=== PATIENT | female | born 1965 | race Caucasian/White ===

== ENCOUNTER 2019-10-26 12:19 | Emergency (ER) | payer MEDICARE, MEDICAID ==
--- NOTE | 2019-10-26 12:59 | EDM.PDOC ---
ED HPI GENERAL MEDICAL PROBLEM - General Chief Complaint: Abdominal Pain Stated Complaint: RUQ abd pain Time Seen by Provider: 10/26/19 12:36 Source of Information: Reports: Patient History Limitations: Reports: No Limitations - History of Present Illness INITIAL COMMENTS - FREE TEXT/NARRATIVE: This patient is a 54 year old female that presents to the ER via EMS. Patient reports that she had hernia repair surgery on Monday. She reports that a wound vac and KATHERINE drain was placed. She reports that she was admitted to the hospital in [place] where the surgery was performed. She reports that she had her KATHERINE drain removed , then discharged home. She reports that she went home with the portable wound vac. She reports started yesterday having RUQ pain and a swelling sensation. She reports the pain has worsened. The patent reports that since yesterday she has had some nausea with the pain. She reports that then this morning, she felt like she had to have a BM. She reports that she sat on the toilet, and dark blood filled the toilet. Patient reports she tried to call her surgeon, sat on hold. Then called ambulance per patient. Patient also reports she has not been taking her Lovenox because she does not now how to use the injection. We will educate patient on this in the ER. Onset Date: 10/25/19 Location: Reports: Abdomen Quality: Reports: Ache Severity: Mild Improves with: Reports: None Worsens with: Reports: None Associated Symptoms: Reports: Nausea/Vomiting. Denies: Confusion, Chest Pain, Cough, cough w sputum, Diaphoresis, Fever/Chills, Headaches, Loss of Appetite, Malaise, Rash, Seizure, Shortness of Breath (chronic, unchanged. Not new. ), Syncope, Weakness Right Upper Abdominal Pain Score (Numeric/FACES): 7 - Related Data Allergies Allergy/AdvReac Type Severity Reaction Status Date / Time acetaminophen [From Midol] Allergy Rash Verified 10/26/19 12:28 aspirin [From Pamprin Max] Allergy Rash Verified 10/26/19 12:28 caffeine [From Pamprin Max] Allergy Rash Verified 10/26/19 12:28 codeine Allergy Cannot Verified 06/25/19 11:16 Remember doxycycline Allergy Cannot Verified 06/25/19 11:16 Remember erythromycin base Allergy Cannot Verified 06/25/19 11:16 Remember pamabrom [From Midol] Allergy Rash Verified 10/26/19 12:28 risperidone [From Risperdal] Allergy Cannot Verified 10/26/19 12:27 Remember Home Meds: Home Meds Cholecalciferol (Vitamin D3) [Optimal D3] 1,250 mcg PO WEEKLY 06/25/19 [History] Crisaborole [Eucrisa] 60 gm TP BID 06/25/19 [History] Ibuprofen [Ibu] 800 mg PO TID PRN 06/25/19 [History] Omeprazole 20 mg PO DAILY 06/25/19 [History] Ondansetron [Zofran ODT] 4 mg PO Q6H PRN 06/25/19 [History] Tiotropium [Spiriva] 1 puff INH DAILY 06/25/19 [History] allopurinoL [Zyloprim] 100 mg PO DAILY 06/25/19 [History] atorvaSTATin Calcium [Atorvastatin Calcium] 10 mg PO DAILY 06/25/19 [History] hydroCHLOROthiazide [Hydrochlorothiazide] 12.5 mg PO DAILY 06/25/19 [History] lamoTRIgine [Lamotrigine] 150 mg PO BID 06/25/19 [History] metFORMIN HCl [Metformin HCl] 500 mg PO BID 06/25/19 [History] tiZANidine HCl [Tizanidine HCl] 4 mg PO Q8H PRN 06/25/19 [History] traMADol HCl [Tramadol HCl] 50 mg PO Q6H PRN 06/25/19 [History] Fluticasone/Vilanterol [Breo Ellipta 200-25 MCG Inhalation Kit] 1 puff INH DAILY 10/26/19 [History] oxyCODONE 5 mg PO Q4HR PRN 10/26/19 [History] Past Medical History Cardiovascular History: Reports: High Cholesterol Respiratory History: Reports: COPD Gastrointestinal History: Reports: GERD Endocrine/Metabolic History: Reports: Diabetes, Type II - Past Surgical History GI Surgical History: Reports: Cholecystectomy, Hernia, Abdominal Female Surgical History: Reports: Tubal Ligation Social & Family History - Tobacco Use Smoking Status *Q: Former Smoker Used Tobacco, but Quit: Yes Month/Year Tobacco Last Used: 2015 - Caffeine Use Caffeine Use: Reports: Coffee - Recreational Drug Use Recreational Drug Use: No ED ROS GENERAL - Review of Systems Review Of Systems: See Below Constitutional: Reports: No Symptoms, Malaise, Decreased Appetite. Denies: Fever, Chills HEENT: Reports: No Symptoms Respiratory: Reports: No Symptoms Cardiovascular: Reports: No Symptoms Endocrine: Reports: No Symptoms GI/Abdominal: Reports: Abdominal Pain, Hematochezia, Nausea. Denies: Vomiting : Reports: No Symptoms Musculoskeletal: Reports: No Symptoms Skin: Reports: No Symptoms Neurological: Reports: No Symptoms Psychiatric: Reports: No Symptoms Hematologic/Lymphatic: Reports: No Symptoms Immunologic: Reports: No Symptoms ED EXAM, GI/ABD - Physical Exam Exam: See Below Exam Limited By: No Limitations General Appearance: Alert, WD/WN, No Apparent Distress Eyes: Bilateral: Normal Appearance Ears: Normal External Exam, Normal Canal, Hearing Grossly Normal, Normal TMs Nose: Normal Inspection, Normal Mucosa, No Blood Throat/Mouth: Normal Inspection, Normal Lips, Normal Teeth, Normal Gums, Normal Oropharynx, Normal Voice, No Airway Compromise Head: Atraumatic, Normocephalic Neck: Normal Inspection, Supple, Non-Tender, Full Range of Motion Respiratory/Chest: No Respiratory Distress, No Accessory Muscle Use, Rhonchi ( chronic, COPD. ) Cardiovascular: Normal Peripheral Pulses, Regular Rate, Rhythm, No Edema, No Gallop, No JVD, No Murmur, No Rub GI/Abdominal Exam: No Organomegaly, Distended, Tender (RUQ, Central upper abd. ) , Other (wound vac dressing. Wound vac attached and light on vac is currently green. There is no drainage in the tube. ) Back Exam: Normal Inspection, Full Range of Motion Extremities: Normal Inspection, Normal Range of Motion, Non-Tender, No Pedal Edema, Normal Capillary Refill Neurological: Alert, Oriented, No Motor/Sensory Deficits Psychiatric: Normal Affect, Normal Mood Skin Exam: Warm, Dry, Intact, Normal Color, No Rash Lymphatic: No Adenopathy Course - Vital Signs Last Recorded V/S: Last Vital Signs Temp 98.5 F 10/26/19 12:21 Pulse 79 10/26/19 12:21 Resp 18 10/26/19 12:21 BP 119/80 10/26/19 12:21 Pulse Ox 96 10/26/19 12:21 - Orders/Labs/Meds Orders: Active Orders 24 hr Category Date Time Status Abdomen Pelvis w Cont [CT] Stat Exams 10/26/19 13:21 Taken CULTURE BLOOD [BC] Stat Lab 10/26/19 12:48 Received CULTURE BLOOD [BC] Stat Lab 10/26/19 12:50 Received Sodium Chloride 0.9% [Normal Saline] 500 ml Med 10/26/19 13:30 Active IV .BOLUS Blood Culture x2 Reflex Set [OM.PC] Stat Oth 10/26/19 12:44 Ordered Medication Orders Sodium Chloride (Normal Saline) 500 mls @ 500 mls/hr IV .BOLUS DAMION Last Admin: 10/26/19 14:07 Dose: 500 mls/hr Labs: Laboratory Tests 10/26/19 10/26/19 10/26/19 Range/Units 12:48 12:48 12:48 WBC 6.7 (5.0-10.0) 10^3/uL RBC 3.88 L (4.00-5.50) 10^6/uL Hgb 11.6 L (12.0-16.0) g/dL Hct 35.2 L (37.0-47.0) % MCV 90.7 (82.0-94.0) fL MCH 29.9 (27.0-32.0) pg MCHC 33.0 (33.0-38.0) g/dL RDW Coeff of Ian 13.7 (11.0-15.0) % Plt Count 400 (150-400) 10^3/uL Neut % (Auto) 61.4 (35-85) % Lymph % (Auto) 21.6 (10-55) % Garrett % (Auto) 5.7 (0-16) % Eos % (Auto) 11.1 H (0-5) % Baso % (Auto) 0.2 (0-3) % Neut # (Auto) 4.09 (1.80-7.00) 10^3/uL Lymph # (Auto) 1.44 (1.00-4.80) 10^3/uL Garrett # (Auto) 0.38 (0.00-0.80) 10^3/uL Eos # (Auto) 0.74 H (0.00-0.45) 10^3/uL Baso # (Auto) 0.01 10^3/uL Sodium 139 (136-145) mEq/L Potassium 3.7 (3.5-5.0) mEq/L Chloride 101 (98-106) mEq/L Carbon Dioxide 28 (21-32) mmol/L BUN 6 L D (7-18) mg/dL Creatinine 0.8 (0.6-1.0) mg/dL Est Cr Clr Drug Dosing 89.85 mL/min Estimated GFR (MDRD) > 60 (>=60) mL/min Glucose 109 H (75-99) mg/dL Lactic Acid 0.9 (0.4-2.0) mmol/L Calcium 9.1 (8.4-10.1) mg/dL Total Bilirubin 0.3 (0.0-1.0) mg/dL AST 44 H (15-37) U/L ALT 159 H (12-78) U/L Alkaline Phosphatase 208 H (46-116) U/L Total Protein 7.0 (6.4-8.2) g/dL Albumin 2.7 L (3.4-5.0) g/dL Meds: Medications Generic Name Dose Route Start Last Admin Trade Name Freq PRN Reason Stop Dose Admin Sodium Chloride 500 mls @ 500 mls/hr 10/26/19 13:30 10/26/19 14:07 Normal Saline IV 500 mls/hr .BOLUS DAMION Administration Discontinued Medications Generic Name Dose Route Start Last Admin Trade Name Freq PRN Reason Stop Dose Admin Iopamidol 154 ml 10/26/19 13:42 10/26/19 13:55 Isovue-370 (76%) IV 10/26/19 13:43 154 ml ONETIME ONE Administration Morphine Sulfate 4 mg 10/26/19 13:34 10/26/19 13:43 Morphine IVPUSH 10/26/19 13:35 4 mg ONETIME ONE Administration Ondansetron HCl 4 mg 10/26/19 13:35 10/26/19 13:40 Zofran IVPUSH 10/26/19 13:36 4 mg NOW STA Administration - Radiology Interpretation Free Text/Narrative:: CT ABD PELVIS WITH CONTRAST: See report: Post surgical changes compatible with recent repair of ventral hernia. Fluid collection containing air in the anterio abd wall midline, most likely represents hematoma or seroma. There is no finding definitive for abscess. CT Results Date: 10/26/19 CT Results Time: 14:40 - Re-Assessments/Exams Free Text/Narrative Re-Assessment/Exam: 10/26/19 14:50 I called and spoke to Dr. Simms general surgeon collection teller at [place]. We discussed patient presentation and all results. He reports to have patient followup with Dr. Sonia Woodward as scheduled. I then discussed this with the patient, she agrees with discharge and followup plan. Wound vac is working properly. Departure - Departure Time of Disposition: 15:10 Disposition: Home, Self-Care 01 Condition: Fair Clinical Impression: Abdominal pain Qualifiers: Abdominal location: right upper quadrant Qualified Code(s): R10.11 - Right upper quadrant pain - Discharge Information *PRESCRIPTION DRUG MONITORING PROGRAM REVIEWED*: Not Applicable *COPY OF PRESCRIPTION DRUG MONITORING REPORT IN PATIENT CHAO: Not Applicable Instructions: Abdominal Pain, Adult, [id number] Referrals: PCP,None [Primary Care Provider] - Forms: ED Department Discharge Additional Instructions: Followup with your surgeon on Monday as scheduled Followup with your primary care provider for continued blood in stool Return to the ER for worsening of condition or any emergent concerns such as passing out, worsening of condition, worsening of bloody stool, vomiting blood, or other concerns Meds as prescribed Sepsis Event Note - Evaluation Sepsis Screening Result: No Definite Risk - Focused Exam Vital Signs: Vital Signs Temp Pulse Resp BP Pulse Ox 10/26/19 12:21 98.5 F 79 18 119/80 96 Date Exam was Performed: 10/26/19 Time Exam was Performed: 15:10 - My Orders Last 24 Hours: My Active Orders 10/26/19 12:44 Blood Culture x2 Reflex Set [OM.PC] Stat 10/26/19 12:48 CULTURE BLOOD [BC] Stat 10/26/19 12:50 CULTURE BLOOD [BC] Stat 10/26/19 13:21 Abdomen Pelvis w Cont [CT] Stat 10/26/19 13:30 Sodium Chloride 0.9% [Normal Saline] 500 ml IV .BOLUS - Assessment/Plan Last 24 Hours: My Active Orders 10/26/19 12:44 Blood Culture x2 Reflex Set [OM.PC] Stat 10/26/19 12:48 CULTURE BLOOD [BC] Stat 10/26/19 12:50 CULTURE BLOOD [BC] Stat 10/26/19 13:21 Abdomen Pelvis w Cont [CT] Stat 10/26/19 13:30 Sodium Chloride 0.9% [Normal Saline] 500 ml IV .BOLUS Plan: PLEASE SEE RN NOTE FOR PFSH
[2019-10-26 13:07] LABS: CHLORIDE,CL 101 mEq/L (98-106); SODIUM,NA 139 mEq/L (136-145)
[2019-10-26] MEDS ORDERED: Sodium Chloride 0.9% 500 ML IV SCH (13:30)
[2019-10-26] MEDS ORDERED: Ondansetron 4 MG/2 ML SDV IVPUSH STA (13:35)
[2019-10-26] MEDS ORDERED: Iopamidol 755 Mg/ML 200 ML Bottle IV ONE (13:42)
== END 2019-10-26 15:23 | disposition home or self-care (01) ==
LOC: CC.ED 12:19
DX: R10.11 Right upper quadrant pain (principal); E78.00 Pure hypercholesterolemia, unspecified; J44.9 Chronic obstructive pulmonary disease, unspecified; K21.9 Gastro-esophageal reflux disease without esophagitis; E11.9 Type 2 diabetes mellitus without complications; Z87.891 Personal history of nicotine dependence; Z79.84 Long term (current) use of oral hypoglycemic drugs; Z88.6 Allergy status to analgesic agent; Z88.5 Allergy status to narcotic agent; Z88.1 Allergy status to other antibiotic agents; Z88.8 Allergy status to other drugs, medicaments and biological substances
CPT/HCPCS: 36415; 74177; 80053; 83605; 85025; 87040; 96361; 96374; 96375; 99284; J2270; J2405; J7040; Q9967

== ENCOUNTER 2020-02-16 09:45 | Emergency (ER) | payer MEDICARE, MEDICAID ==
--- NOTE | 2020-02-16 10:20 | EDM.PDOC ---
ED HPI GENERAL MEDICAL PROBLEM - General Chief Complaint: General Stated Complaint: redness/swelling to forehead Time Seen by Provider: 02/16/20 10:08 Source of Information: Reports: Patient History Limitations: Reports: No Limitations - History of Present Illness INITIAL COMMENTS - FREE TEXT/NARRATIVE: To the emergency department where she advises that she has developed a rash to her face and forehead after using Breo, the patient advises that it does itch and does burn. However she denies any problems breathing or swallowing she denies any throat swelling. She denies any shortness of breath or unusual wheezing. The patient denies any chest pain denies any ear, nose, throat symptoms. She denies any other symptoms Onset: Other (Symptoms after each use of Brio medication) Location: Reports: Face Quality: Reports: Burning Severity: Mild Improves with: Reports: None Worsens with: Reports: Other (Worsens when takes Brio medication) Associated Symptoms: Reports: No Other Symptoms. Denies: Chest Pain, Fever/Chills, Nausea/Vomiting, Weakness Treatments SENIOR RESEARCH MANAGER: Reports: Other (see below) (none) - Related Data Allergies Allergy/AdvReac Type Severity Reaction Status Date / Time acetaminophen [From Midol] Allergy Rash Verified 02/16/20 10:12 aspirin [From Pamprin Max] Allergy Rash Verified 02/16/20 10:12 caffeine [From Pamprin Max] Allergy Rash Verified 02/16/20 10:12 codeine Allergy Cannot Verified 02/16/20 10:12 Remember doxycycline Allergy Cannot Verified 02/16/20 10:12 Remember erythromycin base Allergy Cannot Verified 02/16/20 10:12 Remember pamabrom [From Midol] Allergy Rash Verified 02/16/20 10:12 risperidone [From Risperdal] Allergy Cannot Verified 02/16/20 10:12 Remember Home Meds: Home Meds Cholecalciferol (Vitamin D3) [Optimal D3] 1,250 mcg PO WEEKLY 06/25/19 [History] Crisaborole [Eucrisa] 60 gm TP BID 06/25/19 [History] Ibuprofen [Ibu] 800 mg PO TID PRN 06/25/19 [History] Omeprazole 20 mg PO DAILY 06/25/19 [History] Tiotropium [Spiriva] 1 puff INH DAILY 06/25/19 [History] allopurinoL [Zyloprim] 150 mg PO DAILY 06/25/19 [History] atorvaSTATin Calcium [Atorvastatin Calcium] 10 mg PO DAILY 06/25/19 [History] hydroCHLOROthiazide [Hydrochlorothiazide] 12.5 mg PO DAILY 06/25/19 [History] lamoTRIgine [Lamotrigine] 150 mg PO BID 06/25/19 [History] metFORMIN HCl [Metformin HCl] 500 mg PO BID 06/25/19 [History] tiZANidine HCl [Tizanidine HCl] 4 mg PO Q8H PRN 06/25/19 [History] traMADol HCl [Tramadol HCl] 50 mg PO Q6H PRN 06/25/19 [History] Fluticasone/Vilanterol [Breo Ellipta 200-25 MCG Inhalation Kit] 1 puff INH DAILY 10/26/19 [History] Diclofenac Sodium [Diclo Gel] 1 each TP DAILY PRN 02/16/20 [History] Sertraline HCl 50 mg PO DAILY 02/16/20 [History] Past Medical History Cardiovascular History: Reports: High Cholesterol Respiratory History: Reports: COPD Gastrointestinal History: Reports: GERD Endocrine/Metabolic History: Reports: Diabetes, Type II - Past Surgical History GI Surgical History: Reports: Cholecystectomy, Hernia, Abdominal Female Surgical History: Reports: Tubal Ligation Social & Family History - Caffeine Use Caffeine Use: Reports: Coffee ED ROS GENERAL - Review of Systems Review Of Systems: See Below Constitutional: Reports: No Symptoms. Denies: Fever, Chills HEENT: Reports: No Symptoms. Denies: Ear Pain, Nose Pain, Throat Pain, Throat Swelling Respiratory: Reports: No Symptoms. Denies: Shortness of Breath, Wheezing, Cough Cardiovascular: Reports: No Symptoms GI/Abdominal: Reports: No Symptoms. Denies: Abdominal Pain, Nausea, Vomiting Musculoskeletal: Reports: No Symptoms. Denies: Neck Pain, Back Pain Skin: Reports: Rash Neurological: Reports: No Symptoms Psychiatric: Reports: No Symptoms ED EXAM, GENERAL - Physical Exam Exam: See Below Exam Limited By: No Limitations General Appearance: Alert, WD/WN, No Apparent Distress Throat/Mouth: Normal Inspection, Normal Lips, Normal Voice, No Airway Compromise Head: Atraumatic, Normocephalic Neck: Normal Inspection, Supple, Non-Tender, Full Range of Motion Respiratory/Chest: No Respiratory Distress, Lungs Clear, Normal Breath Sounds, Chest Non-Tender Cardiovascular: Normal Peripheral Pulses, Regular Rate, Rhythm Back Exam: Normal Inspection, Full Range of Motion Extremities: Normal Inspection, Normal Range of Motion, Non-Tender, Normal Capillary Refill Neurological: Alert, Oriented, Normal Cognition, Normal Gait, No Motor/Sensory Deficits Psychiatric: Normal Affect, Normal Mood Skin Exam: Warm, Dry, Intact, Normal Color, Rash (Rash to the forehead and right side of the face) Course - Vital Signs Text/Narrative:: The patient was evaluated in the emergency department the patient has a rash that she advises comes after using her medication Brio. The patient is having no respiratory symptoms with this rash. The patient was advised to go ahead and use Benadryl 25 mg every 6 hours for [address] thapa for further evaluation and treatment and possible authorization of Advair. She was advised to hold her Brio and use her Symbicort Last Recorded V/S: Last Vital Signs Temp 36.2 C 02/16/20 10:15 Pulse 78 02/16/20 10:15 Resp 18 02/16/20 10:15 BP 137/81 02/16/20 10:15 Pulse Ox 93 L 02/16/20 10:15 Departure - Departure Time of Disposition: 10:17 Disposition: Home, Self-Care 01 Condition: Good Clinical Impression: Drug side effects - Discharge Information *PRESCRIPTION DRUG MONITORING PROGRAM REVIEWED*: Not Applicable *COPY OF PRESCRIPTION DRUG MONITORING REPORT IN PATIENT CHAO: Not Applicable Referrals: Adolph Thapa MD [Primary Care Provider] - Forms: ED Department Discharge Additional Instructions: hold the Breo use your Symbicort follow up with Dr. Thapa this week, call in am for an appointment time Benadryl 25mg every 6 hours x 24 hours return to the ER sooner if worse or problems Sepsis Event Note (ED) - Focused Exam Vital Signs: Vital Signs Temp Pulse Resp BP Pulse Ox 02/16/20 10:15 36.2 C 78 18 137/81 93 L - Problem List & Annotations (1) Drug side effects SNOMED Code(s): 058275553 Code(s): T88.7XXA - UNSP ADVERSE EFFECT OF DRUG OR MEDICAMENT, INIT ENCNTR Status: Acute Priority: Medium Current Visit: Yes - Problem List Review Problem List Initiated/Reviewed/Updated: Yes - Assessment/Plan Plan: The patient's past medical history, past surgical history, social history and past family medical history is reviewed see the nursing notes for details
== END 2020-02-16 10:25 | disposition home or self-care (01) ==
LOC: CC.ED 09:45
DX: L27.0 Generalized skin eruption due to drugs and medicaments taken internally (principal); T50.995A Adverse effect of other drugs, medicaments and biological substances, initial encounter; E78.00 Pure hypercholesterolemia, unspecified; J44.9 Chronic obstructive pulmonary disease, unspecified; K21.9 Gastro-esophageal reflux disease without esophagitis; E11.9 Type 2 diabetes mellitus without complications; Z79.899 Other long term (current) drug therapy; Z88.5 Allergy status to narcotic agent; Z88.6 Allergy status to analgesic agent; Z88.8 Allergy status to other drugs, medicaments and biological substances; Z88.1 Allergy status to other antibiotic agents
CPT/HCPCS: 99282; 99283

== ENCOUNTER → 2020-06-19 | Day surgery (SDC) | payer MEDICARE, MEDICAID ==
[~2020-06-19] MED LIST: Ketamine 200 MG/20 ML MDV ONE; Lidocaine 2% 5 ML SDV ONE; Midazolam 1 MG/ML 2 ML SDV ONE; Propofol 200 MG/20 ML SDV ONE; fentaNYL 100 MCG/2 ML SDV ONE
[2020-06-19] MEDS: Lactated Ringers 1,000 ML IV SCH (07:35)
--- NOTE | 2020-06-19 08:42 | OR ---
DATE OF OPERATION: 06/19/2020 PREOPERATIVE DIAGNOSIS: EPIGASTRIC PAIN. POSTOPERATIVE DIAGNOSIS: EPIGASTRIC PAIN. SURGEON: Adolph Thapa MD PROCEDURE: DIAGNOSTIC EGD WITH MAGGIE. ANESTHESIA: MAC. COMPLICATIONS: None. SPECIMEN: Antral MAGGIE. FINDINGS: Normal full-length EGD. RECOMMENDATIONS: Medical followup in my office for ongoing evaluation. INDICATIONS: Patient was in for routine physical. She has been having some nonspecific epigastric pain on and off. We did a trial of Protonix, which did not give her relief. We elected to proceed with diagnostic EGD. DESCRIPTION OF PROCEDURE: The patient was prepped and draped, placed in the left lateral decubitus position. A lubricated Olympus gastroscope was inserted over a bit, advanced to cricopharyngeus and easily intubated into the esophagus. The esophageal lining was benign in its entire course. The Z-line was crisp and sharp at 40 cm. No hernia present. No distal esophagitis, stricturing, ulceration or Barclay changes. Scope was advanced into the stomach through the pylorus, into the second portion of the duodenum. This and the duodenal bulb were benign. The scope was brought back into the stomach and retroflexed. The upper fundus and cardia were unremarkable. Upon straightening, the rest of the gastric lining including the mid to distal fundus and the antrum were thoroughly evaluated. There were no polyps, masses, ulcerations or signs of peptic ulcer disease. A CLOtest was obtained. Air was then suctioned. Scope was removed without complication. MATA/SELENA /[id number]
[2020-06-19] MEDS: Ondansetron 4 MG/2 ML SDV IVPUSH PRN (08:56)
== END ==
LOC: CC.SDS 06:51
PROVIDERS: ATTEND Family Medicine
DX: R10.13 Epigastric pain (principal); J44.9 Chronic obstructive pulmonary disease, unspecified; E78.00 Pure hypercholesterolemia, unspecified; G47.30 Sleep apnea, unspecified; E11.9 Type 2 diabetes mellitus without complications; E66.9 Obesity, unspecified; Z01.812 Encounter for preprocedural laboratory examination; Z20.822 Contact with and (suspected) exposure to COVID-19; Z88.5 Allergy status to narcotic agent; Z88.8 Allergy status to other drugs, medicaments and biological substances; Z88.1 Allergy status to other antibiotic agents; Z79.899 Other long term (current) drug therapy; Z86.73 Personal history of transient ischemic attack (TIA), and cerebral infarction without residual deficits; Z98.890 Other specified postprocedural states; Z87.891 Personal history of nicotine dependence; Z79.84 Long term (current) use of oral hypoglycemic drugs; Z68.38 Body mass index [BMI] 38.0-38.9, adult
CPT/HCPCS: 00731; 36415; 80061; 82947; 82962; 87081; J2001; J2250; J2405; J2704; J3010; J7120

== ENCOUNTER → 2021-12-30 | Day surgery (SDC) | payer MEDICARE, MEDICAID ==
[~2021-12-30] MED LIST changes: -Ketamine 200 MG/20 ML MDV ONE; +Ketorolac 30 MG/ML SDV ONE; -Lidocaine 2% 5 ML SDV ONE; -fentaNYL 100 MCG/2 ML SDV ONE; +fentaNYL 50 MCG/ML SDV ONE
[2021-12-30] MEDS: Lactated Ringers 1,000 ML IV SCH (09:21)
[2021-12-30] MEDS: Lidocaine 1% with EPINEPHrine 1:100,000 20 ML MDV SUBCUT ONE (10:03)
== END ==
LOC: CC.SDS 08:18
PROVIDERS: ATTEND Surgery
DX: N64.1 Fat necrosis of breast (principal); N63.10 Unspecified lump in the right breast, unspecified quadrant; I10 Essential (primary) hypertension; E78.00 Pure hypercholesterolemia, unspecified; E11.9 Type 2 diabetes mellitus without complications; J44.9 Chronic obstructive pulmonary disease, unspecified; E66.01 Morbid (severe) obesity due to excess calories; F41.9 Anxiety disorder, unspecified; F31.9 Bipolar disorder, unspecified; D64.9 Anemia, unspecified; G47.30 Sleep apnea, unspecified; K21.9 Gastro-esophageal reflux disease without esophagitis; Z79.84 Long term (current) use of oral hypoglycemic drugs; Z79.899 Other long term (current) drug therapy; Z68.41 Body mass index [BMI] 40.0-44.9, adult; Z91.040 Latex allergy status; Z91.018 Allergy to other foods; Z88.5 Allergy status to narcotic agent; Z88.6 Allergy status to analgesic agent; Z88.8 Allergy status to other drugs, medicaments and biological substances; Z79.891 Long term (current) use of opiate analgesic; Z98.890 Other specified postprocedural states; Z87.891 Personal history of nicotine dependence
CPT/HCPCS: 82947; 88305; J1885; J2250; J2704; J3010; J7120

== ENCOUNTER 2022-06-21 13:19 | Emergency (ER) | payer OTHER, MEDICARE, MEDICAID | END 2022-06-21 14:00 | disposition home or self-care (01) | LOC: CC.ED 13:19 | DX: S86.911A Strain of unspecified muscle(s) and tendon(s) at lower leg level, right leg, initial encounter (principal); R10.11 Right upper quadrant pain; J44.9 Chronic obstructive pulmonary disease, unspecified; E78.00 Pure hypercholesterolemia, unspecified; E11.9 Type 2 diabetes mellitus without complications; Z88.6 Allergy status to analgesic agent; Z91.048 Other nonmedicinal substance allergy status; Z88.5 Allergy status to narcotic agent; Z91.040 Latex allergy status; Z88.8 Allergy status to other drugs, medicaments and biological substances; Z79.899 Other long term (current) drug therapy; Z79.84 Long term (current) use of oral hypoglycemic drugs; Z90.49 Acquired absence of other specified parts of digestive tract; V48.5XXA Car driver injured in noncollision transport accident in traffic accident, initial encounter; Y92.410 Unspecified street and highway as the place of occurrence of the external cause | CPT/HCPCS: 73560-RT; 99283; 99284 ==

== ENCOUNTER → 2022-11-11 | Day surgery (SDC) | payer MEDICARE, MEDICAID ==
[~2022-11-11] MED LIST changes: +Ketamine 200 MG/20 ML MDV ONE; -Ketorolac 30 MG/ML SDV ONE; +Metoclopramide 10 MG/2 ML SDV ONE
[2022-11-11] MEDS: Lactated Ringers 1,000 ML IV SCH (07:24)
== END ==
LOC: CC.SDS 07:13
PROVIDERS: ATTEND Family Medicine
DX: K57.30 Diverticulosis of large intestine without perforation or abscess without bleeding (principal); K64.8 Other hemorrhoids; F41.9 Anxiety disorder, unspecified; K21.9 Gastro-esophageal reflux disease without esophagitis; J44.9 Chronic obstructive pulmonary disease, unspecified; E78.00 Pure hypercholesterolemia, unspecified; I10 Essential (primary) hypertension; G47.30 Sleep apnea, unspecified; E11.9 Type 2 diabetes mellitus without complications; F31.81 Bipolar II disorder; E66.01 Morbid (severe) obesity due to excess calories; Z86.010 Personal history of colon polyps; Z88.5 Allergy status to narcotic agent; Z88.8 Allergy status to other drugs, medicaments and biological substances; Z88.1 Allergy status to other antibiotic agents; Z79.899 Other long term (current) drug therapy; Z79.84 Long term (current) use of oral hypoglycemic drugs; Z87.891 Personal history of nicotine dependence; Z68.42 Body mass index [BMI] 45.0-49.9, adult
CPT/HCPCS: 00811; J2250; J2704; J2765; J3010; J3490; J7120

== ENCOUNTER 2023-01-02 14:22 | Emergency (ER) | payer MEDICARE, MEDICAID ==
[2023-01-02 15:01] LABS: BASOPHILS ABSOLUTE AUTO 0.02 10^3/uL (0.00-0.50); BASOPHILS PERCENT AUTO 0.3 % (0-1); EOSINOPHILS ABSOLUTE AUTO 0.11 10^3/uL (0.00-1.50); EOSINOPHILS PERCENT AUTO 1.5 % (0-6); HEMOGLOBIN 13.3 g/dL (12.0-16.0); IMMATURE GRAN ABSOLUTE AUTO 0.04 10^3/uL (0.00-0.49); IMMATURE GRAN PERCENT AUTO 0.5 % (0.0-4.9); LYMPHOCYTES ABSOLUTE AUTO 2.38 10^3/uL (0.60-5.00); LYMPHOCYTES PERCENT AUTO 31.9 % (24-44); MEAN CORPUSCULAR HEMOGLOBIN 32.1 pg (27.0-32.0); MEAN CORPUSCULAR HGB CONC 33.3 g/dL (32.0-36.0); MEAN CORPUSCULAR VOLUME 96.6 fL (83.0-97.0); MONOCYTES ABSOLUTE AUTO 0.42 10^3/uL (0.00-1.50); MONOCYTES PERCENT AUTO 5.6 % (0-10); NEUTROPHILS ABSOLUTE AUTO 4.49 x10^3/uL (1.80-8.00); NEUTROPHILS PERCENT AUTO 60.2 % (41-71); PLATELET COUNT,PLT 327 10^3/uL (150-400); RED BLOOD CELL COUNT 4.14 x10^6/uL (4.00-5.50); WHITE BLOOD CELL COUNT,WBC 7.5 10^3/uL (4.0-11.0)
[2023-01-02 15:25] LABS: ALBUMIN 3.2 g/dL (3.4-5.0); BILIRUBIN TOTAL 0.3 mg/dL (0.0-1.0); C-REACTIVE PROTEIN 1.89 mg/dL (<=0.30); CALCIUM 9.5 mg/dL (8.4-10.1); CREATININE 0.7 mg/dL (0.6-1.0); EST CRCL DRUG DOSING (CG) 102.32 mL/min; POTASSIUM,K 3.5 mEq/L (3.5-5.0); PROTEIN TOTAL,TP 7.7 g/dL (6.4-8.2)
[2023-01-02] MEDS ORDERED: methylPREDNISolone Sodium Succinate 125 MG/2 ML SDV IVPUSH STA (15:26)
[2023-01-02] MEDS ORDERED: methylPREDNISolone Sodium Succinate 125 MG/2 ML SDV IM STA (15:29)
[2023-01-02] MEDS ORDERED: Iopamidol 755 Mg/ML 100 ML Bottle IVPUSH ONE (15:49)
== END 2023-01-02 17:28 | disposition home or self-care (01) ==
LOC: CC.ED 14:22
DX: J44.1 Chronic obstructive pulmonary disease with (acute) exacerbation (principal); E78.00 Pure hypercholesterolemia, unspecified; J44.9 Chronic obstructive pulmonary disease, unspecified; K21.9 Gastro-esophageal reflux disease without esophagitis; E11.9 Type 2 diabetes mellitus without complications; Z91.09 Other allergy status, other than to drugs and biological substances; Z88.6 Allergy status to analgesic agent; Z88.5 Allergy status to narcotic agent; Z88.1 Allergy status to other antibiotic agents; Z91.040 Latex allergy status; Z88.8 Allergy status to other drugs, medicaments and biological substances; Z79.84 Long term (current) use of oral hypoglycemic drugs; Z79.899 Other long term (current) drug therapy; Z79.51 Long term (current) use of inhaled steroids
CPT/HCPCS: 36415; 71046; 71275; 80053; 84484; 85025; 85379; 86140; 93005; 93010; 96372; 99284; J2930; Q9967

== ENCOUNTER 2024-07-30 12:29 | Emergency (ER) | payer MEDICARE, MEDICAID ==
[2024-07-30 12:58] LABS: BASOPHILS ABSOLUTE AUTO 0.02 10^3/uL (0.00-0.50); BASOPHILS PERCENT AUTO 0.1 % (0-1); EOSINOPHILS ABSOLUTE AUTO 0.09 10^3/uL (0.00-1.50); EOSINOPHILS PERCENT AUTO 0.6 % (0-6); HEMATOCRIT 45.7 % (37.0-47.0); HEMOGLOBIN 14.9 g/dL (12.0-16.0); IMMATURE GRAN ABSOLUTE AUTO 0.03 10^3/uL (0.00-0.49); IMMATURE GRAN PERCENT AUTO 0.2 % (0.0-4.9); LYMPHOCYTES ABSOLUTE AUTO 2.19 10^3/uL (0.60-5.00); LYMPHOCYTES PERCENT AUTO 13.6 % (24-44); MEAN CORPUSCULAR HEMOGLOBIN 29.6 pg (27.0-32.0); MEAN CORPUSCULAR HGB CONC 32.6 g/dL (32.0-36.0); MEAN CORPUSCULAR VOLUME 90.7 fL (83.0-97.0); MONOCYTES ABSOLUTE AUTO 0.49 10^3/uL (0.00-1.50); NEUTROPHILS ABSOLUTE AUTO 13.33 x10^3/uL (1.80-8.00); NEUTROPHILS PERCENT AUTO 82.5 % (41-71); PLATELET COUNT,PLT 488 10^3/uL (150-400); RED BLOOD CELL COUNT 5.04 x10^6/uL (4.00-5.50); WHITE BLOOD CELL COUNT,WBC 16.2 10^3/uL (4.0-11.0)
[2024-07-30 13:14] LABS: ALBUMIN 4.3 g/dL (3.4-5.0); BILIRUBIN TOTAL 0.3 mg/dL (0.0-1.0); C-REACTIVE PROTEIN 2.91 mg/dL (<=0.50); CALCIUM 10.8 mg/dL (8.4-10.1); CREATININE 0.9 mg/dL (0.6-1.0); EST CRCL DRUG DOSING (CG) 76.15 mL/min; POTASSIUM,K 4.2 mEq/L (3.5-5.0); PROTEIN TOTAL,TP 9.2 g/dL (6.4-8.2)
[2024-07-30 13:22] LABS: APPEARANCE,URINE CLEAR (CLEAR); BILIRUBIN,URINE SMALL (NEGATIVE); COLOR,URINE YELLOW (YELLOW); GLUCOSE,URINE NEGATIVE (NEGATIVE); KETONES,URINE NEGATIVE (NEGATIVE); LEUKOCYTE ESTERASE,URINE SMALL (NEGATIVE); NITRITE,URINE NEGATIVE (NEGATIVE); OCCULT BLOOD,URINE NEGATIVE (NEGATIVE); PROTEIN,URINE 30 mg/dL (NEGATIVE); UROBILINOGEN,URINE 0.2 EU/dL (0.2-1.0)
[2024-07-30 13:31] LABS: BACTERIA,URINE RARE /HPF (NOT SEEN); EPITHELIAL CELLS,URINE RARE /HPF (NOT SEEN); MUCUS,URINE FEW /HPF (NOT SEEN); RBC,URINE NOT SEEN /HPF (0-5); WBC,URINE 0-5 /HPF (0-5)
[2024-07-30] MEDS: Iopamidol 755 Mg/ML 100 ML Bottle IVPUSH ONE (13:40)
[2024-07-30] MEDS: Ondansetron 4 MG/2 ML SDV IVPUSH STA (14:10)
== END 2024-07-30 15:47 | disposition home or self-care (01) ==
LOC: CC.ED 12:29
DX: K52.9 Noninfective gastroenteritis and colitis, unspecified (principal); E11.9 Type 2 diabetes mellitus without complications; J44.9 Chronic obstructive pulmonary disease, unspecified; E78.00 Pure hypercholesterolemia, unspecified; M19.90 Unspecified osteoarthritis, unspecified site; Z88.8 Allergy status to other drugs, medicaments and biological substances; Z88.6 Allergy status to analgesic agent; Z91.048 Other nonmedicinal substance allergy status; Z91.040 Latex allergy status; Z79.899 Other long term (current) drug therapy; Z79.84 Long term (current) use of oral hypoglycemic drugs; Z79.891 Long term (current) use of opiate analgesic; Z79.51 Long term (current) use of inhaled steroids; Z79.82 Long term (current) use of aspirin; Z90.49 Acquired absence of other specified parts of digestive tract; Z87.891 Personal history of nicotine dependence
CPT/HCPCS: 36415; 74177; 80053; 81001; 85025; 86140; 96374; 99284; 99284-25; J2405; Q9967

== ENCOUNTER 2024-09-29 09:50 | Emergency (ER) | payer MEDICARE, MEDICAID ==
[2024-09-29] MEDS: Sodium Chloride 0.9% 1,000 ML IV ONE ×2 (10:21→11:45)
[2024-09-29 10:51] LABS: BASOPHILS ABSOLUTE AUTO 0.03 10^3/uL (0.00-0.50); BASOPHILS PERCENT AUTO 0.1 % (0-1); EOSINOPHILS ABSOLUTE AUTO 0.01 10^3/uL (0.00-1.50); HEMATOCRIT 34.9 % (37.0-47.0); HEMOGLOBIN 11.3 g/dL (12.0-16.0); IMMATURE GRAN PERCENT AUTO 0.4 % (0.0-4.9); LYMPHOCYTES ABSOLUTE AUTO 2.72 10^3/uL (0.60-5.00); MEAN CORPUSCULAR HEMOGLOBIN 29.9 pg (27.0-32.0); MEAN CORPUSCULAR HGB CONC 32.4 g/dL (32.0-36.0); MEAN CORPUSCULAR VOLUME 92.3 fL (83.0-97.0); MONOCYTES ABSOLUTE AUTO 1.44 10^3/uL (0.00-1.50); MONOCYTES PERCENT AUTO 6.4 % (0-10); NEUTROPHILS ABSOLUTE AUTO 18.28 x10^3/uL (1.80-8.00); NEUTROPHILS PERCENT AUTO 81.1 % (41-71); PLATELET COUNT,PLT 565 10^3/uL (150-400); RED BLOOD CELL COUNT 3.78 x10^6/uL (4.00-5.50)
[2024-09-29 10:57] LABS: WHITE BLOOD CELL COUNT,WBC 22.6 10^3/uL (4.0-11.0)
[2024-09-29 11:05] LABS: ALANINE AMINOTRANSFERASE,ALT 25 U/L (12-78); ALBUMIN 2.9 g/dL (3.4-5.0); ALKALINE PHOSPHATASE 189 U/L (46-116); ASPARTATE AMNIOTRANSFERASE,AST 19 U/L (15-37); BILIRUBIN TOTAL 0.6 mg/dL (0.0-1.0); BLOOD UREA NITROGEN,BUN 29 mg/dL (7-18); C-REACTIVE PROTEIN 20.54 mg/dL (<=0.50); CALCIUM 9.7 mg/dL (8.4-10.1); CARBON DIOXIDE,CO2 22 mmol/L (21-32); CHLORIDE,CL 100 mEq/L (98-106); CREATININE 2.4 mg/dL (0.6-1.0); ESTIMATED GFR 23 mL/min (>=60); GLUCOSE RANDOM 141 mg/dL (75-99); PROTEIN TOTAL,TP 7.4 g/dL (6.4-8.2); SODIUM,NA 138 mEq/L (136-145)
[2024-09-29] MEDS: Piperacillin/Tazobactam 4.5 GM in Sodium Chloride 0.9% 100 ML IV ONE (11:16)
[2024-09-29] MEDS: Sodium Chloride 0.9% 1,000 ML ONE (11:42)
[2024-09-29] MEDS: Acetaminophen 500 MG Tab PO ONE (11:46)
== END 2024-09-29 12:25 ==
LOC: CC.ED 09:50
DX: A41.9 Sepsis, unspecified organism (principal); R65.21 Severe sepsis with septic shock; K21.9 Gastro-esophageal reflux disease without esophagitis; E11.9 Type 2 diabetes mellitus without complications; E78.00 Pure hypercholesterolemia, unspecified; M19.90 Unspecified osteoarthritis, unspecified site; Z88.8 Allergy status to other drugs, medicaments and biological substances; Z88.5 Allergy status to narcotic agent; Z91.040 Latex allergy status; Z79.84 Long term (current) use of oral hypoglycemic drugs; Z79.899 Other long term (current) drug therapy; Z79.82 Long term (current) use of aspirin; Z90.49 Acquired absence of other specified parts of digestive tract
CPT/HCPCS: 36415; 74176; 80053; 83605; 85025; 86140; 87040; 96361; 96365; 99285-25; A9270-GY; J2543; J7030

== ENCOUNTER 2024-10-04 08:48 | Emergency (ER) | payer MEDICARE, MEDICAID ==
[2024-10-04 09:45] LABS: BASOPHILS ABSOLUTE AUTO 0.01 10^3/uL (0.00-0.50); BASOPHILS PERCENT AUTO 0.1 % (0-1); EOSINOPHILS ABSOLUTE AUTO 0.16 10^3/uL (0.00-1.50); EOSINOPHILS PERCENT AUTO 1.4 % (0-6); HEMATOCRIT 29.9 % (37.0-47.0); HEMOGLOBIN 9.5 g/dL (12.0-16.0); IMMATURE GRAN ABSOLUTE AUTO 0.09 10^3/uL (0.00-0.49); IMMATURE GRAN PERCENT AUTO 0.8 % (0.0-4.9); LYMPHOCYTES ABSOLUTE AUTO 1.96 10^3/uL (0.60-5.00); LYMPHOCYTES PERCENT AUTO 17.5 % (24-44); MEAN CORPUSCULAR HEMOGLOBIN 29.5 pg (27.0-32.0); MEAN CORPUSCULAR HGB CONC 31.8 g/dL (32.0-36.0); MEAN CORPUSCULAR VOLUME 92.9 fL (83.0-97.0); MONOCYTES ABSOLUTE AUTO 0.74 10^3/uL (0.00-1.50); MONOCYTES PERCENT AUTO 6.6 % (0-10); NEUTROPHILS ABSOLUTE AUTO 8.23 x10^3/uL (1.80-8.00); NEUTROPHILS PERCENT AUTO 73.6 % (41-71); PLATELET COUNT,PLT 469 10^3/uL (150-400); RED BLOOD CELL COUNT 3.22 x10^6/uL (4.00-5.50); WHITE BLOOD CELL COUNT,WBC 11.2 10^3/uL (4.0-11.0)
[2024-10-04 10:14] VITALS: BP 96/60; PULSE 78
[2024-10-04 10:14] LABS: ALBUMIN 2.1 g/dL (3.4-5.0); BILIRUBIN TOTAL 0.4 mg/dL (0.0-1.0); CALCIUM 9.5 mg/dL (8.4-10.1); CREATININE 0.9 mg/dL (0.6-1.0); EST CRCL DRUG DOSING (CG) 75.23 mL/min; MAGNESIUM 2.3 mg/dL (1.8-2.4); POTASSIUM,K 4.4 mEq/L (3.5-5.0); PROTEIN TOTAL,TP 7.2 g/dL (6.4-8.2)
== END 2024-10-04 11:17 | disposition home or self-care (01) ==
LOC: CC.ED 08:48 → SUPCPDRO 08:48 → CC.ED 11:17
DX: L76.82 Other postprocedural complications of skin and subcutaneous tissue (principal); E78.00 Pure hypercholesterolemia, unspecified; J44.9 Chronic obstructive pulmonary disease, unspecified; E11.9 Type 2 diabetes mellitus without complications; Z91.048 Other nonmedicinal substance allergy status; Z88.1 Allergy status to other antibiotic agents; Z88.5 Allergy status to narcotic agent; Z91.040 Latex allergy status; Z88.8 Allergy status to other drugs, medicaments and biological substances; Z79.84 Long term (current) use of oral hypoglycemic drugs; Z79.899 Other long term (current) drug therapy; Z79.82 Long term (current) use of aspirin
CPT/HCPCS: 36415; 80053; 83605; 83735; 85025; 87040; 99283; 99284